=== PATIENT | female | born 1985 | race American Indian/Alaskan Native ===

== ENCOUNTER 2017-12-06 06:37 | Day surgery (SDC) | payer OTHER ==
[2015-08-22 08:39] VITALS: BMI 26.4
[2017-12-06] MEDS ORDERED: Propofol 10 mg/ml Inj (20 ML) ONE (09:03)
[2017-12-06] MEDS ORDERED: Midazolam 2 MG/2 ML VIAL ONE (09:03)
[2017-12-06] MEDS ORDERED: Rocuronium 10 mg/ml (5 ml) ONE (09:04)
[2017-12-06] MEDS ORDERED: Succinylcholine Chloride 20 mg/ml Syr (5 ml) IV ONE (09:04)
[2017-12-06] MEDS ORDERED: cefOXitin IV 2 gm in Dextrose 2 GM/50 ML BAG IVPB ONE (09:16)
[2017-12-06] MEDS ORDERED: Oxytocin 10 Units/ml Inj ONE (09:17)
[2017-12-06] MEDS ORDERED: Lactated Ringer's 1,000 ML IV ONE (09:30)
[2017-12-06] MEDS ORDERED: HYDROmorphone 0.5 mg/0.5 ml ISec IVP PRN (09:33)
[2017-12-06 11:45] VITALS: RESP 18
[2017-12-06 12:21] VITALS: BP 108/70; PULSE 63; TEMP 98; O2SAT 100
--- NOTE | 2017-12-06 19:39 | OP ---
PROCEDURE DATE: 12/06/2017 PREOPERATIVE DIAGNOSIS: Missed . POSTOPERATIVE DIAGNOSIS: Missed . PROCEDURES: Suction, dilation and curettage of the uterus. FINDINGS: Uterus 7-week size with moderate products of conception. SURGEON: Harjinder Lancaster MD ANESTHESIA: General. ESTIMATED BLOOD LOSS: 15 mL. COMPLICATIONS: Nil. INDICATION FOR THE PROCEDURE: After the risks, benefits, and alternatives of the planned procedures including but not limited to the infection, hemorrhage, deep vein thrombosis, atelectasis, pneumonia, pulmonary embolism, damage to the bladder, damage to the ureter, renal insufficiency, renal failure, wound infection, wound dehiscence, incisional hernia, keloid formation, damage to the large and small intestine, damage to the inferior vena cava and aorta, requiring extensive repair, anesthesia complications, electrolyte imbalance, possibility of , fluid overload, cerebral edema and embolism, and other complications that were discussed, but are not listed above have been explained to the patient and all her questions answered. Informed consent was obtained. DESCRIPTION OF PROCEDURE: The patient was taken to the operating room in a stable condition. Under suitable level of general anesthesia, she was prepped and draped in a sterile fashion after having been placed in a dorsal lithotomy position. Bladder was emptied by straight catheterization. Examination under anesthesia revealed a normal-sized uterus anteverted with no adnexal masses. A weighted speculum was inserted into the vagina. The anterior lip of the cervix was grasped using a single tooth tenaculum. The cervix was dilated with a #18 Hanks dilator. An 8 mm suction tip was inserted into the uterus. An endocervical curettage was performed until the uterus was completely empty. Instruments were removed from the vagina. The uterus was bimanually massaged. There was good hemostasis. The patient was then transferred to the recovery room in a stable condition. Pad and instrument counts were correct x2. There were no complications. Harjinder Lancaster MD
== END 2017-12-06 13:46 | disposition home or self-care (01) ==
LOC: C.SDS 06:37
PROVIDERS: ATTEND Obstetrics & Gynecology Reproductive Endocrinology
DX: O02.1 Missed abortion (principal)
CPT/HCPCS: 36415; 59820; 86850; 86900; 88305; J0694; J1100; J2210; J2250; J2405; J2590; J2704; J2792; J3010; J7120